=== PATIENT | female | born 1975 | race Caucasian/White ===

== ENCOUNTER 2020-12-10 09:11 | Emergency (ER) | payer OTHER, SELFPAY ==
--- NOTE | ~2020-12-10 | XR_ITS ---
EXAMINATION: XR knee RT min 4V EXAM DATE: 12/10/2020 09:35 INDICATION: Medial knee pain after jogging. History of physical therapy. TECHNIQUE: Right knee frontal, crosstable lateral, orthogonal oblique projections for interpretation . There is no prior study for comparison. FINDINGS: No evidence osteochondral defect or joint body in the right knee joint. There are no acut e fractures or dislocations identified. There is no subcutaneous gas. There is small joint effusion . There are no radiopaque foreign bodies. IMPRESSION: Small right knee joint effusion. Reviewed, dictated and finalized at location B. [employer]
[2020-12-10 09:17] VITALS: BP 112/64; PULSE 65; RESP 14; TEMP 37; O2SAT 100
--- NOTE | 2020-12-10 09:43 | ED.LOWEXIN ---
HPI - Extremity Injury (Lower) General Chief Complaint: Extremity Injury, Lower Stated Complaint: right knee pain Source: patient Mode of arrival: ambulatory Limitations: no limitations History of Present Illness HPI Narrative: Patient is a 45-year-old female who presents complaining of right knee pain. Patient reports she was jogging 5 days ago when she felt a pop in her knee. Reports increasing pain since. She reports pain level of 6/10. She has used rest and ice with moderate relief. She denies other injuries. She reports having same in the past and completing physical therapy with lessening condition. MD complaint: knee injury Related Data Home Medications Medication Instructions Recorded Confirmed anastrozole 1 mg PO DAILY 12/10/20 12/10/20 venlafaxine 37.5 mg PO DAILY 12/10/20 12/10/20 Allergies Allergy/AdvReac Type Severity Reaction Status Date / Time Sulfa (Sulfonamide Allergy Severe Anaphylaxis Verified 11/20/20 15:03 Antibiotics) Review of Systems Review of Systems: Narrative: CONSTITUTIONAL: Denies fever, chills, or sweats. EYES: Denies visual changes, redness, or discharge. ENT: Denies rhinorrhea, congestion, sore throat, or otalgia. CARDIOVASCULAR: Denies chest pain, palpitations, or edema. RESPIRATORY: Denies cough or dyspnea. GASTROINTESTINAL: Denies abdominal pain, nausea, vomiting, or diarrhea. GENITOURINARY: Denies dysuria or hematuria. SKIN: Denies rash or itching. MUSCULOSKELETAL: Right knee pain NEUROLOGIC: Denies headache, numbness, dizziness, or weakness. PSYCHIATRIC: Denies anxiety or depression. [facility] Past Medical History Medical History (Updated 12/10/20 @ 09:48 by CLAU Yang) Breast cancer Osteopenia Surgical History Surgical History (Updated 12/10/20 @ 09:47 by CLAU Yang) H/O oophorectomy History of section 06/04/04 History of lumpectomy of left breast with lymph nodes 09/28/2007 Social History Social History (Updated 12/10/20 @ 09:45 by CLAU Yang) Smoking status: Former smoker Alcohol intake: current Alcohol use details: occasional Substance use: never Living arrangements: with family Comments At the time of signature, I have reviewed and agree with nursing past medical, surgical, social, and family history unless otherwise noted. Please see nursing chart for further information. There is no relevant family history pertinent to the presenting complaint. Exam Narrative: Exam Narrative: GENERAL: Well-appearing, well-nourished, and in no acute distress. HEAD: Normocephalic, atraumatic. EYES: No redness or drainage. ENT: Mucous membranes pink and moist. CHEST: No respiratory distress. HEART: Regular rate and rhythm. EXTREMITIES: Normal range of motion. Tenderness with palpation to right medial knee, mild edema. SKIN: Warm, dry, no rash. NEURO: No focal deficits. Alert and oriented x3. Gait steady. PSYCH: Normal affect. No signs of depression or anxiety. Course Vital Signs Vital signs: Vital Signs Temperature 37.0 C 12/10/20 09:17 Pulse Rate 65 12/10/20 09:17 Respiratory Rate 14 12/10/20 09:17 Blood Pressure 112/64 12/10/20 09:17 Pulse Oximetry 100 12/10/20 09:17 Temperature 37.0 C 12/10/20 09:17 Pulse Rate 65 12/10/20 09:17 Respiratory Rate 14 12/10/20 09:17 Blood Pressure 112/64 12/10/20 09:17 Pulse Oximetry 100 12/10/20 09:17 Reviewed MDM - Extremity Injury (Lower) MDM Narrative Medical decision making narrative: Patient's x-ray shows small effusion. Discussed with patient rest, ice, elevation and use of an Kurtis wrap for comfort. Patient to be referred to Ortho for further evaluation. Patient is stable for discharge to home with outpatient follow-up as discussed. Differential Diagnosis Differential diagnosis: Likely acute internal derangement of knee and other (Sprain, strain, effusion, contusion) Critical Care Time Critical Care Time Lauri
--- NOTE | 2020-12-10 09:47 | PC.NURSE ---
PT DECLINED WHEELCHAIR AND ICE FOR COMFORT
== END 2020-12-10 10:00 | disposition home or self-care (01) ==
PROVIDERS: Emergency Provider Nurse Practitioner; PCP Family Medicine
DX: M25.461 Effusion, right knee (principal); M25.561 Pain in right knee; Z87.891 Personal history of nicotine dependence; M85.80 Other specified disorders of bone density and structure, unspecified site; Z85.3 Personal history of malignant neoplasm of breast
CPT/HCPCS: 73564; 99213; G0463

== ENCOUNTER 2025-06-19 12:30 | Outpatient (RCR) | payer OTHER, SELFPAY ==
--- NOTE | 2025-05-17 15:31 | OPREHPOC ---
Outpatient Therapy Plan of Care This is a Multidisciplinary Plan of Care that may contain components documented by all disciplines (PT, OT, and ST.) PT Problem 1 PT Problem #1 Knowledge Deficit PT Goal 1 Goal / Goal Update *independent with self management of lymphedema-- compression garment, self massage and skin care Target Visit 10 PT Problem 2 PT Problem #2 Pain PT Goal 1 Goal / Goal Update * decrease pain of L arm to 1/10 at worst Target Visit 10 PT Problem 3 PT Problem #3 Impaired Lymphatic System PT Goal 1 Goal / Goal Update improve lymphatic flow of her trunk and L arm, evident by 1* circumferential measurement to 40 cm, 285 cm 2* with palpation over L arm, good tissue mobility of forearm and medial humerus 3* R and L proximal, anterior trunk with slight discoloration of tissue 4* good tissue mobility of proximal anterior , upper trunk Target Visit 10
--- NOTE | 2025-05-17 15:31 | PTOPEVAL1 ---
Assessment and note entered by Alena Tucker, PT Evaluation Information Assessment Status Evaluation ICD-10 Condition Codes (PT) Lymphedema I89.0 Onset January 2025 Subjective Information in January, was ill and had a virus; L arm swollen and when took a shower, her L trunk and arm would turn purple from lymphedema in the past knew how to do the massage; started doing her massage and it is better now; noted more swelling in her arm- shirts fit tighter over L arm. she is R hand dominant activity: work office/desk job; is active, golfs; is able to do all of her usual activities. Reported Pain Level Pain Score Self Report Additional Pain Score Comments pain range of 0-3/10; sore and tenderness to touch over L lateral humerus and forearm Assessment PT Clinical Summary Marli has the diagnosis of L UE lymphedema. Her history includes L breast lumpectomy with node removal, radiation and chemotherapy. Paraclavicular lymph node removal and chemotherapy . She is taking anastrozole. With a recent illness/ virus, she has increase swelling of L arm and discoloration of her skin. With the evaluation: circumferential measurement of the L arm is 8.8 cm larger than her R, with tissue changes over R and L anterior upper trunk, axillary webbing, medial-distal humerus and proximal-anterior forearm; L shoulder flexion and abduction ROM is decreased due to the axillary tightness; Skilled PT services are indicated for lymphedema treatment with manual lymph drainage, exercises, compression pump, education for HEP, lymphedema management with home compression pump and compression garment. Plan of Care Interventions Intermittent Compression Pump,Manual Lymph Drainage,Manual Therapy,Patient/Caregiver Education,Therapeutic Exercise,Other Other Interventions taping PT Services Indicated Yes Treatment Frequency and 1-2x/wk for 10 visits Duration These treatments will address the objective and functional deficits as defined above. The patient will be advanced safely and appropriately in order for the patient to progress towards his/her prior level of function. Additional exercises will be introduced and as well as a comprehensive home exercise program upon discharge, if needed, ?to ensure carryover of functional gains achieved in the clinic. This treatment plan has been reviewed and agreement upon by the patient.
--- NOTE | 2025-06-19 13:15 | OPREHPOC ---
Outpatient Therapy Plan of Care This is a Multidisciplinary Plan of Care that may contain components documented by all disciplines (PT, OT, and ST.) PT Problem 1 PT Problem #1 Knowledge Deficit PT Goal 1 Goal / Goal Update *independent with self management of lymphedema-- compression garment, self massage and skin care 06-19-25 d/c goal met education for compression garment and issued info for her size, but pt has not ordered yet She has used a compression garment in the past Target Visit 10 Progress Met PT Problem 2 PT Problem #2 Pain PT Goal 1 Goal / Goal Update * decrease pain of L arm to 1/10 at worst 06-19-25 d/c goal met Target Visit 10 Progress Met PT Problem 3 PT Problem #3 Impaired Lymphatic System PT Goal 1 Goal / Goal Update improve lymphatic flow of her trunk and L arm, evident by 1* circumferential measurement to 40 cm, 285 cm 2* with palpation over L arm, good tissue mobility of forearm and medial humerus 3* R and L proximal, anterior trunk with slight discoloration of tissue 4* good tissue mobility of proximal anterior , upper trunk 06-19-25 d/c goals 2,3 met; #1 296.1 and #4- tightness over axilla Target Visit 10
--- NOTE | 2025-06-19 13:16 | PTOPDC ---
Assessment and note entered by Alena Tucker, PT, CLT Assessment Status Discharge ICD-10 Condition Codes (PT) Lymphedema I89.0 Onset January 2025 Subjective Information have been doing arm exercises; self massage and watching skin; Reported Pain Level Pain Score 0: Self Report Additional Pain Score Comments no pain or heaviness in L arm Assessment PT Clinical Summary Marli has [id number] PT sessions, for treatment of L UE lymphedema. Compared to the initial evaluation: today, does not have any pain or discomfort in L UE, but with end range of stretching has report of tightness; L shoulder ROM is WNL and pt is functional with all of her home, self care and work tasks; circumferential measurement up to 40 cm is 296.1 cm, increased by 4 cm; tissue integrity is improved- no longer have firmness over anterior forearm or medial humueral areas; tightness of tissue over L axilla/pec area; Continues to have skin discoloration over anterior upper trunk and tissue changes over port site; issued and discussion of compression garment, but she has not obtained yet. Education completed for compression sleeve, self manual lymph drainage, UE exercises, lymphedema management. Marli would benefit from a home intermittent compression pump to assist her with managing lymphedema over L arm and tissue changes over axilla and upper trunk. The goals were achieved, except circumferential measurement of arm. Discharge PT servcises. Plan of Care PT Services Indicated No
== END 2025-06-19 14:04 | disposition home or self-care (01) ==
LOC: ANHPT 12:30
PROVIDERS: PCP Emergency Medicine; Visit Provider Physician Assistant Medical
DX: I89.0 Lymphedema, not elsewhere classified (principal); C50.011 Malignant neoplasm of nipple and areola, right female breast; C50.412 Malignant neoplasm of upper-outer quadrant of left female breast; Z17.0 Estrogen receptor positive status [ER+]
CPT/HCPCS: 97016; 97110; 97140; 97161; 97530